=== PATIENT | female | born 1995 | race Two or more races ===

== ENCOUNTER 2021-04-25 02:39 | Observation (INO) | payer OTHER ==
[~2021-04-25] VITALS: Ht 157.5 cm; Wt 98.9 kg
== END 2021-04-25 05:17 | disposition home or self-care (01) ==
LOC: LDRP 02:39
PROVIDERS: ADMIT Specialist; ATTEND Specialist
DX: O62.9 Abnormality of forces of labor, unspecified (principal); O26.893 Other specified pregnancy related conditions, third trimester; R06.02 Shortness of breath; Z88.0 Allergy status to penicillin; Z3A.38 38 weeks gestation of pregnancy
CPT/HCPCS: 59025; 81002; G0378